=== PATIENT | female | born 1980 | race Caucasian/White ===

== ENCOUNTER 2016-09-05 01:11 | Emergency (ER) | payer OTHER ==
[2016-09-05 02:08] LABS: ABSOLUTE NEUTROPHIL COUNT 6.4 K/mm3 (1.8-7.7); BASO # 0.1 K/mm3 (0.0-0.2); BASO % 0.4 % (0.2-1.0); EOS # 0.2 (0.0-0.5); EOS % 2.1 % (0.9-2.9); HEMOGLOBIN 14.7 gm/l (12.0-16.0); IMM NEUT% 0.4 % (0-1); LYMPH # 3.7 (1.0-4.8); LYMPH % 33.2 % (15-45); MEAN CORPUSCULAR HEMOGLOBIN 31.1 pg (27.0-31.0); MEAN CORPUSCULAR HGB CONC 33.4 g/dl (33.0-37.0); MEAN PLATELET VOLUME 10.7 fl (7.4-10.4); MONO # 0.8 (0.0-0.8); MONO % 7.3 % (4-12); NEUT % 56.6 % (43-75); PLATELET COUNT 232 K/mm3 (130-400); RED CELL DISTRIBUTION WIDTH 12.2 % (11.5-14.5)
[2016-09-05 02:19] LABS: ALB/GLOB RATIO 1.8 (>1.0); ALBUMIN 4.6 gm/dL (3.5-5.7); CALCIUM 9.3 mg/dL (8.6-10.3)
[2016-09-05 03:04] LABS: PH,URINE 6.5 (5.0-8.0); URINE BILIRUBIN NEGATIVE (NEGATIVE); URINE BLOOD NEGATIVE (NEGATIVE); URINE GLUCOSE (UA) NEGATIVE (NEGATIVE); URINE LEUKOCYTE ESTERASE NEGATIVE (NEGATIVE); URINE NITRITE NEGATIVE (NEGATIVE); URINE PROTEIN NEGATIVE (NEGATIVE); URINE UROBILINOGEN NORMAL (0-1 mg/dl)
[2016-09-05 03:05] LABS: URINE APPEARANCE CLEAR; URINE COLOR YELLOW
--- NOTE | 2016-09-05 08:57 | CT ---
HEAD CT WITHOUT CONTRAST HISTORY: Syncope. No intravenous contrast administered. Contiguous axial images acquired from skull base to vertex. COMPARISON:None. BRAIN VOLUME:Grossly unremarkable for patient age. VENTRICULAR SIZE:No gross ventriculomegaly. FOCAL MASS EFFECT:None. ACUTE INTRACRANIAL HEMORRHAGE:None. CALVARIUM:Grossly intact. VISIBLE PARANASAL SINUSES AND MASTOID AIR CELLS:Grossly clear. IMPRESSION: No gross mass effect, ventriculomegaly, or acute intracranial hemorrhage. Preliminary report relayed to the Emergency Medicine medical service by Dr. Cool on 09/05/2016 at 0312 hours.
== END 2016-09-05 03:32 | disposition home or self-care (01) ==
LOC: ED 01:11
DX: R55 Syncope and collapse (principal)